=== PATIENT | female | born 1995 | race Caucasian/White ===

== ENCOUNTER → 2021-09-04 | Outpatient (CLI) | payer OTHER ==
[~2021-09-04] MED LIST: PREDNISONE 50 M50 MG PO
[2021-09-04 10:29] LABS: HEMOGLOBIN 14.2 gm/dl (12.3-15.3); RED BLOOD COUNT 5.06 M/UL (4.00-5.10); WHITE BLOOD COUNT 11.9 K/UL (4.5-11.0)
[2021-09-06 12:09] LABS: FSH 7.3 mIU/mL (.); INSULIN 25.6 uIU/mL (2.6-24.9); LUTEINIZING HORMONE(LH) 27.5 mIU/mL (.); TESTOSTERONE, SERUM 53 ng/dL (13-71)
== END ==
LOC: LAB 10:02
PROVIDERS: Obstetrics & Gynecology
DX: N92.0 Excessive and frequent menstruation with regular cycle (principal); N92.6 Irregular menstruation, unspecified
CPT/HCPCS: 82627; 82947; 83001; 83002; 84146; 84403; 84443; 84702; 85025